=== PATIENT | female | born 1955 | race Caucasian/White ===

== ENCOUNTER 2022-02-25 13:16 | Outpatient (CLI) | payer MEDICARE, MEDICAID, SELFPAY ==
--- NOTE | 2022-02-25 13:30 | CT_ITS ---
WS: [id number] CT ABDOMEN AND PELVIS NONCONTRAST HISTORY: 30 LB WEIGHT LOSS/H/X COLON POLYPS/EPIGASTRIC PAIN TECHNIQUE: Imaging performed through the abdomen and pelvis. Oral contrast provided. Coronal and sagi ttal reformats are submitted. All CT scans at [facility] use at least one of these dose optim ization techniques: automated exposure control; mA and/or kV adjustment per patient size (includes ta rgeted exams where dose is matched to clinical indication); or iterative reconstruction. DLP: 565.77 mGy.cm COMPARISON: None available. Lower thorax: Hyperexpanded lung bases with severe centrilobular emphysema. Mildly ectatic lower thor acic aorta. Liver: Mildly enlarged liver extends over the ilium. Liver is of increased density throughout but no mass identified. Gallbladder: Prior cholecystectomy. Pancreas: Unremarkable on this unenhanced exam. Spleen: Normal. Adrenal glands: Normal. No mass. Right kidney: Normal size kidney with no mass or hydronephrosis. Left kidney: Normal size kidney with no mass or hydronephrosis. Aorta: Ectatic abdominal aorta with no aneurysm. Calcifications noted within the proximal SMA and inge iac axis. No free fluid. Lymph nodes would be difficult to exclude as there is very little fat the l oops of GI tract and organs. GI tract: Mild wall thickening of the stomach. No small bowel obstruction. Diffuse fecal retention. P rior appendectomy. Numerous diverticula in the distal colon with wall thickening. Abdominal wall: Negative. No hernia. Pelvis: Prior hysterectomy. Normally distended bladder. Osseous structures: Osteopenia. CT/CT abdomen pelvis wo con [id number] IMPRESSION: 1. Imaging quality is suboptimal without IV contrast. There is very little fat the structures within the abdomen and pelvis. 2. Severe emphysema. 3. Prior appendectomy, cholecystectomy and hysterectomy. 4. Mild wall thickening of the stomach may be due to underdistention. 5. Dense liver can be seen with amiodarone therapy, iron and copper deposition . 6. Atherosclerosis aorta and mesenteric arteries. 7. Sigmoid diverticulosis with no acute diverticulitis.
[2022-02-25] MEDS: barium sulfate 450 mL Oral Susp PO (14:52)
== END 2022-02-25 13:17 | disposition home or self-care (01) ==
LOC: RAD 13:16
PROVIDERS: PCP Nurse Practitioner Family; Visit Provider Surgery
DX: R63.4 Abnormal weight loss (principal); R19.5 Other fecal abnormalities; R10.13 Epigastric pain; Z86.010 Personal history of colon polyps; K57.30 Diverticulosis of large intestine without perforation or abscess without bleeding; I70.0 Atherosclerosis of aorta; Q42.8 Congenital absence, atresia and stenosis of other parts of large intestine; Z90.49 Acquired absence of other specified parts of digestive tract; Z90.710 Acquired absence of both cervix and uterus; J43.9 Emphysema, unspecified
CPT/HCPCS: 74176

== ENCOUNTER 2023-01-24 09:39 | Inpatient (IN) | payer MEDICARE, MEDICAID, SELFPAY ==
[2023-01-24] VITALS (14 sets, daily range): BP systolic 87–135; BP diastolic 53–87; PULSE 73–90; RESP 15–26; TEMP 36.4–37.4; O2SAT 92–99
--- NOTE | 2023-01-24 10:00 | XRR_ITS ---
PROCEDURE INFORMATION: Exam: XR Chest Exam date and time: 01/24/2023 10:20 AM Age: 67 years old Clinical indication: Shortness of breath; Additional info: SOB TECHNIQUE: Imaging protocol: Radiologic exam of the chest. Views: 1 view. COMPARISON: CT abdomen pelvis wo con [id number] 02/25/2022 2:44 PM FINDINGS: Lungs: The lungs are hyperinflated with flattening of the hemidiaphragms compatible with COPD. Pleural spaces: There is notable apical pleural scarring. Heart/Mediastinum: Unremarkable. No cardiomegaly. Bones/joints: The bones are osteopenic. There is a mild dextroconvex scoliosis of the lower thoracic spine. XR/XR chest 1V portable [id number] IMPRESSION: COPD.
[2023-01-24] MEDS: sodium chloride 0.9% 500 ML 999 ML IV (10:21)
[2023-01-24] MEDS: methylPREDNISolone sod succ 125 mg SDV IV (10:21)
--- NOTE | 2023-01-24 10:23 | ECG_ITS ---
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 Measurements Intervals [place] Rate: 84 P: -1 MO: 108 QRS: 90 QRSD: 82 T: 77 QT: 339 QTc: 401 Interpretive Statements SINUS RHYTHM WITH SHORT MO INTERVAL No previous ECG available for comparison Electronically Signed On 01-25-2023 11:25:50 CDT by Zeke Marcus M.D. [id number]
[2023-01-24 10:24] LABS: Basophils % 0.2 %; Hematocrit 39.2 % (37.0-47.0); Hemoglobin 12.1 g/dL (11.5-15.3); Lymphocytes # 0.9 10^3/uL (0.8-4.8); Lymphocytes % 8.1 %; Mean Corpuscular HGB Conc 30.9 g/dL (30.0-36.0); Mean Corpuscular Volume 100.5 fl (81-99); Mean Platelet Volume 9.6 fL (7.4-10.4); Monocytes # 0.8 10^3/uL (0.2-0.9); Monocytes % 7.2 %; Neutrophils # 8.99 10^3/uL (1.8-7.7); Neutrophils % 84.1 %; Nucleated Red Blood Cells % 0 %; Platelet Count 233 10^3/cmm (130-400); Red Cell Distribution Width 13.2 % (12.1-15.1); White Blood Count 10.7 10^3/uL (4.0-10.0)
[2023-01-24] MEDS: aspirin 81 mg Chew Tablet 324 MG PO (10:42)
[2023-01-24 10:44] LABS: Troponin(5th) Baseline 32 ng/L (0-10)
[2023-01-24] MEDS: ipratropium-albuterol 3 mL Neb INHALATION ×4 (10:45→20:08)
[2023-01-24 10:53] LABS: Alanine Aminotransferase 11 U/L (0-33); Albumin Level 3.9 g/dL (3.5-5.2); Alkaline Phosphatase 57 U/L (35-105); Anion Gap 8.3 (5-19); Aspartate Amino Transferase 12 U/L (0-32); Blood Urea Nitrogen 7 mg/dL (8-23); Calcium 9.4 mg/dL (8.5-10.5); Chloride 83 mmol/L (98-107); Globulin 2.9 g/dL (1.3-4.6); Glomerular Filtration Rate 158.3 mL/min (90-130); Glucose 101 mg/dL (65-115); NT Pro B Type Natriuretic Pept 382 pg/mL (0-125); Osmolality Calculated 276 mOsm/kg (285-295); Potassium 4.3 mmol/L (3.5-5.1); Sodium 134 mmol/L (136-145); Total Bilirubin 0.5 mg/dL (0.15-1.2); Total Protein 6.8 g/dL (6.6-8.7)
[2023-01-24 10:55] LABS: Influenza A by IFA negative (Negative); Influenza B by IFA negative (Negative)
[2023-01-24 10:56] LABS: SARS Covid-2 Antigen negative (Negative)
[2023-01-24 11:01] LABS: Carbon Dioxide 47 mmol/L (22-29)
--- NOTE | 2023-01-24 11:18 | ED_ITS ---
HPI - SOB/Dyspnea General: Chief Complaint: Shortness of Breath/Dyspnea Stated Complaint: SOB Time Seen by Provider: 01/24/23 09:45 History of Present Illness: HPI Narrative: Kristine is a 67-year-old female with a history of COPD and cardiovascular disease that was seen in the emergency department today for increased work of breathing, shortness of breath, chest tightness. Patient denies any radiation of pain Reports her symptoms have been progressive for the last 4 days. She denies fever or chills. She reports productive cough with green sputum Patient does not see cardiology or pulmonology. Her medications are unchanged since 2020 She is currently taking statins, beta-blockers. She is reportedly on Lasix as well. She states she receives all of her care here through the hospital system. Associated symptoms: Reports chest congestion, chest pain and orthopnea; Deny abdominal pain, dizziness, extremity pain, fever(s), nausea, palpitations, polydipsia, polyuria or vomiting Review of Systems General: Reports: 10 or more systems reviewed and unremarkable except in HPI and below Const: Denies: fever(s), chills, change in appetite, change in weight, fatigue or malaise Eyes: Denies: change in vision, eye discomfort, eye discharge or eye redness ENMT: Denies: throat pain, enlarged tonsils, odynophagia, hoarseness, ear or mastoid pain, ear discharge, change in hearing, tinnitus, nasal discharge, nasal congestion, post nasal drip or sinus pain Card: Reports: chest pain, edema, dyspnea on exertion and orthopnea; Denies: palpitations, irregular heart rhythm or leg pain with exertion Resp: Reports: dyspnea, productive cough, change in phlegm color and chest congestion; Denies: non-productive cough, wheezing or stridor GI: Denies: abdominal pain, nausea, vomiting, dysphagia, diarrhea, constipation, bloating, GI cramping or hematochezia : Denies: flank pain, difficulty voiding, dysuria, urinary frequency, uri nary urgency, urinary hesitancy, oliguria or hematuria Musc: Denies: neck pain, back pain, extremity pain, joint pain, joint swelling, joint redness, joint warmth or muscle weakness Skin/Breast: Denies: rash, pruritus, erythema, photosensitivity or new lesions Neuro: Denies: headache(s), numbness in extremities, weakness in extremities, sensory changes, lack of coordination, difficulty walking, frequent falls, dizziness, confusion, Slurred speech present, difficulty communicating thoughts, seizure-like activity or involuntary movements Endo: Denies: polyuria, polydipsia or tired all the time Ward/Lymph: Denies: easy bruising or easy bleeding PFSH ED PFSH: Medical History Anxiety CAD (coronary artery disease) Chronic back pain Chronic obstructive pulmonary disease Dyslipidemia Hypertension Hypothyroid Surgical History H/O: hysterectomy Hx of cholecystectomy S/P appendectomy Family History (Updated 01/24/23 @ 13:41 by Justin Perkins MD) Mother Lung cancer Social History Smoking and tobacco status: current every day smoker cigarettes Packs smoked per day: 1 Years cigarettes smoked: 30 [ Other cigarette details: started at age 28] Physical Exam Const: COMMON NORMALS: patient oriented x3 and alert; apparent distress GENERAL APPEARANCE: cooperative ORIEN TATION/CONSCIOUSNESS: Yes awake, Yes oriented to person, Yes oriented to place and Yes oriented to time HENMT: COMMON NORMALS: normocephalic and atraumatic HEAD & SCALP: normocephalic and atraumatic FACE & SINUS: normal facial exam MOUTH: Normal oral and palatal mucosa present THROAT: posterior oropharynx normal Eye: COMMON NORMALS: Equal, round and reactive pupils present, EOMs intact bilaterally, conjunctivae normal and no scleral icterus GENERAL EYE: appearance normal, both eyes and all related structures ALIGNMENT: Yes alignment normal PERIORBITAL: periorbital findings normal CONJUNCTIVA: Yes conjunctivae normal PUPIL: Yes Equal, round and reactive pupils present Neck/C-Spine: COMMON NORMALS: full ROM GENERAL: Yes normal visual inspection Lymph: LYMPHATIC: no lymphadenopathy noted Chest: CHEST: Yes abnormal inspection of the chest barrel chest and Yes Symmetrical chest wall rise Breast/axilla inspection: Yes no chest deformity, asymmetry, normal contours, no nodules, masses, tenderness Resp: EFFORT & INSPECTION: No able to speak in complete sentences, Yes symmetric chest movement, No abnormal respiratory pattern, Yes tachypneic, Yes respiratory distress, Yes labored, Yes retractions supraclavicular, Yes uses accessory muscles and Yes prolonged expiratory phase AUSCULTATION: crackles and diminished lung sounds diffuse Cardio: COMMON NORMALS: regular rate, regular rhythm and Peripheral pulses 2+ throughout RATE: regular rate RHYTHM: regular rhythm PERIPHERAL PULSES: Peripheral pulses 2+ throughout GI: COMMON NORMALS: Normal to inspection, nondistended, normoactive bowel sounds present, Soft to palpation, non-tender and No hepatosplenomegaly present INSPECTION: Yes normal to inspection AUSCULTATION: Yes normoactive bowel sounds PALPATION: Yes Soft to palpation and Yes No hepatosplenomegaly present RECTAL EXAM: deferred Extremity: COMMON NORMALS: normal to inspection GENERAL: Yes normal exam except as noted Neuro: COMMON NORMALS: patient oriented x3 SENSORIUM/ORIENTATION: Yes alert, Yes oriented to person, Yes oriented to place and Yes oriented to time CRANIAL NERVES: Yes CN normal except as noted Psych: COMMON NORMALS: mental status grossly normal, Normal thought process present, cooperative, activity/motor behavior normal, denies homicidal ideation and denies suicidal ideation THOUGHT PROCESS: Normal thought process present Skin: COMMON NORMALS: no rashes or lesions noted, no wounds and turgor normal GENERAL SKIN EXAM: no rashes or lesions noted and turgor normal Course Vital Signs: Vital signs: Vital Signs Temperature 97.8 F 01/24/23 09:40 Pulse Rate 79 01/24/23 11:48 Respiratory Rate 20 H 01/24/23 11:44 Blood Pressure 135/87 01/24/23 11:20 Pulse Oximetry 93 01/24/23 11:44 Oxygen Delivery Me thod Nasal Cannula 01/24/23 11:44 Oxygen Flow Rate 3 01/24/23 11:44 MDM - SOB/Dyspnea Medical Decision Making Differential diagnoses include COPD exacerbation, pneumonia, COVID, influenza, cardiac?AMI, unstable angina, Patient was evaluated in the emergency department. She has reports of longstanding COPD and cardiovascular disease but does not follow-up with cardiology or pulmonology. Patient does have a primary care doctor who has been encouraging her to come to the emergency department for the last week due to excessive weight loss and increased work of breathing. Patient has declined. Patient still uses nicotine/tobacco products She reports increase in change in her sputum. She now states it is purulent in nature. She has some chest tightness versus chest pain for the last 2 to 4 days. She states she came to the emergency department today because of worsening fatigue Patient states she was unable to walk to the kitchen. In the emergency department she is tachypneic but has a oxygen saturation of greater than 92% on 3 L. Uses 3 L O2 at home and has not required increase in her oxygen. I did speak with Dr. Flower, my attending, early on. He did obtain a EKG on arrival. At 1023 her EKG revealed a sinus rhythm with a ventricular rate at a 84 beats a minute. QTc is 380 EKG shows some elevation ST segment in leads II, III and aVF. There is no previous EKG documented to compare to. She was given steroids here in the emergency department, ceftriaxone, and DuoNeb. After the initial DuoNeb patient reported some improvement in respiratory status. Her breath sounds are less diminished. Her CXR reveals COPD without obvious pneumonia. Laboratory studies complete revealed only mild increase in her white blood cells?10,700. There is no anemia CMP shows a CO2 of 47. Her troponin was 32. The EKG shows some improvement in the inferior T elevation. I spoke with Dr. Clay at 1230. He is requested ABG and will come down to see the patient. It is likely the patient has heart strain secondary to COPD exacerbation. Lab Data 01/24/23 09:58 01/24/23 09:58 Labs/Radiology: Radiology Impressions Chest X-Ray 01/24/23 10:00 IMPRESSION: COPD. Laboratory Results WBC 10.7 10^3/uL (4.0-10.0) H 01/24/23 09:58 RBC 3.90 10^6/uL (4.1-5.3) L 01/24/23 09:58 Hgb 12.1 g/dL (11.5-15.3) 01/24/23 09:58 Hct 39.2 % (37.0-47.0) 01/24/23 09:58 MCV 100.5 fl (81-99) H 01/24/23 09:58 MCH 31.0 pg (28.0-34.0) 01/24/23 09:58 MCHC 30.9 g/dL (30.0-36.0) 01/24/23 09:58 RDW 13.2 % (12.1-15.1) 01/24/23 09:58 Plt Count 233 10^3/cmm (130-400) 01/24/23 09:58 MPV 9.6 fL (7.4-10.4) 01/24/23 09:58 Neut % (Auto) 84.1 % 01/24/23 09:58 Lymph % (Auto) 8.1 % 01/24/23 09:58 [place] % (Auto) 7.2 % 01/24/23 09:58 Eos % (Auto) 0.0 % 01/24/23 09:58 Baso % (Auto) 0.2 % 01/24/23 09:58 Neut # (Auto) 8.99 10^3/uL (1.8-7.7) H 01/24/23 09:58 Lymph # (Auto) 0.9 10^3/uL (0.8-4.8) 01/24/23 09:58 [place] # (Auto) 0.8 10^3/uL (0.2-0.9) 01/24/23 09:58 Eos # (Auto) 0.0 10^3/uL (0.0-0.8) 01/24/23 09:58 Baso # (Auto) 0.0 10^3/uL (0.0-0.1) 01/24/23 09:58 Nucleated RBC % (auto) 0 % 01/24/23 09:58 Nucleated RBCs # 0.0 /100WBC 01/24/23 09:58 Specimen Type Arterial 01/24/23 13:00 Sample Site Brachial, left 01/24/23 13:00 ABG pH 7.44 (7.35-7.45) 01/24/23 13:00 ABG pCO2 68.3 mmHg (35-45) H* 01/24/23 13:00 ABG pO2 73.0 mmHg (80.0-100.0) L 01/24/23 13:00 ABG HCO3 46.7 mmol/L (22-26) H 01/24/23 13:00 ABG O2 Saturation 97.2 01/24/23 13:00 ABG Base Excess 19.3 mmol/L (-2.0-2.0) H 01/24/23 13:00 [place] Test N/a 01/24/23 13:00 A-a O2 Gradient 9.4 mmHg (5-10) 01/24/23 13:00 Hematocrit 35.4 % (37-47) L 01/24/23 13:00 Hgb O2 Saturation 93.3 % (95-100) L 01/24/23 13:00 Carboxyhemoglobin 3.6 %THgb (0.4-20.1) 01/24/23 13:00 Methemoglobin 0.5 % (0.4-1.5) 01/24/23 13:00 Total Hemoglobin 11.5 g/dL (12-16) L 01/24/23 13:00 Sodium 133.0 mmol/L (131-143) 01/24/23 13:00 Potassium 4.0 mmol/L (3.5-5.0) 01/24/23 13:00 Glucose 118.0 mg/dL (70-115) H 01/24/23 13:00 Ionized Calcium 1.2 mmol/L (1.1-1.4) 01/24/23 13:00 O2 Delivery Device Nc 01/24/23 13:00 O2 Liters/Min 3.0 % 01/24/23 13:00 FiO2 32.0 % 01/24/23 13:00 Process Improvement Manager ID glc 01/24/23 13:00 Sodium 134 mmol/L (136-145) L 01/24/23 09:58 Potassium 4.3 mmol/L (3.5-5.1) 01/24/23 09:58 Chloride 83 mmol/L (98-107) L 01/24/23 09:58 Carbon Dioxide 47 mmol/L (22-29) H* 01/24/23 09:58 Anion Gap 8.3 (5-19) 01/24/23 09:58 BUN 7 mg/dL (8-23) L 01/24/23 09:58 Creatinine 0.4 mg/dL (0.5-0.9) L 01/24/23 09:58 GFR Calculation 158.3 mL/min (90-130) H 01/24/23 09:58 Glucose 101 mg/dL (65-115) 01/24/23 09:58 Calculated Osmolality 276 mOsm/kg (285-295) L 01/24/23 09:58 Calcium 9.4 mg/dL (8.5-10.5) 01/24/23 09:58 Total Bilirubin 0.5 mg/dL (0.15-1.2) 01/24/23 09:58 AST 12 U/L (0-32) 01/24/23 09:58 ALT 11 U/L (0-33) 01/24/23 09:58 Alkaline Phosphatase 57 U/L (35-105) 01/24/23 09:58 Troponin T Baseline 32 ng/L (0-10) H 01/24/23 09:58 Troponin T 120 Minute 27.78 ng/L (0-10) H 01/24/23 12:06 Delta Troponin T -4.22 ABS# (0-10) L 01/24/23 12:06 NT-Pro-B Natriuret Pep 382 pg/mL (0-125) H 01/24/23 09:58 Total Protein 6.8 g/dL (6.6-8.7) 01/24/23 09:58 Albumin 3.9 g/dL (3.5-5.2) 01/24/23 09:58 Globulin 2.9 g/dL (1.3-4.6) 01/24/23 09:58 Influenza Type A Ag negative (Negative) 01/24/23 10:30 Influenza Type B Ag negative (Negative) 01/24/23 10:30 SARS-CoV-2 Ag (Rapid) negative (Negative) 01/24/23 10:30 Discharge Plan Discharge Patient Disposition: Admitted As Inpatient Clinical Impression: Acute exacerbation of chronic obstructive pulmonary disease, Elevated troponin, Hypercarbia, Acute respiratory distress Condition: Stable Prescriptions: No Action Spiriva Respimat 2.5 mcg/actuation mist 2 inh inhalation QAM Combivent Respimat 20-100 mcg/actuation mist 1 puff inhalation Q6H budesonide-formoterol [Symbicort] 160-4.5 mcg/actuation HFA aerosol inhaler 2 puff inhalation BID Dexilant 60 mg capsule,biphase delayed releas 60 mg PO DAILY diclofenac sodium 1 % gel 2 g topical QID Rx Instructions: apply to single elbow, wrist or hand; for hand includes palm/fingers/back of hand fluticasone propionate [Allergy Relief (fluticasone)] 50 mcg/actuation spray,suspension 1 spray intranasal BID Rx Instructions: administer into each nostril metoprolol succinate [Toprol XL] 25 mg tablet extended release 24 hr 25 mg PO QPM levothyroxine 100 mcg capsule 100 mcg PO DAILY lorazepam 0.5 mg tablet 0.5 mg PO BID rosuvastatin 10 mg tablet 10 mg PO QPM montelukast 10 mg tablet 1 ea PO DAILY albuterol sulfate 90 mcg/actuation HFA aerosol inhaler 2 puff inhalation Q4H PRN (Reason: Shortness Of Breath Or Wheezing) losartan 50 mg tablet 50 mg PO DAILY potassium chloride 8 mEq capsule, extended release 8 meq PO DAILY furosemide 20 mg tablet 20 mg PO DAILY megestrol 20 mg tablet 20 mg PO QID dicyclomine 10 mg capsule 10 mg PO TID Referrals: Renetta Garcia NP [Primary Care Provider] - Coding Level of Care Code ED Utility Appraiser for Bette Gotti
--- NOTE | 2023-01-24 11:24 | ECG_ITS ---
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 Measurements Intervals [place] Rate: 82 P: -33 [place]: 119 QRS: 88 QRSD: 81 T: 73 QT: 338 QTc: 395 Interpretive Statements SINUS RHYTHM WITH SHORT [place] INTERVAL Compared to ECG 01/24/2023 10:23:59 No significant changes Electronically Signed On 01-25-2023 11:34:44 CDT by Zeke Marcus M.D. [id number]
[2023-01-24] MEDS: cefTRIAXone 1,000 MG in sodium chloride 0.9% (plus) 50 ML 100 MG IV (11:25)
[2023-01-24 12:56] LABS: Troponin 5 2HR 27.78 ng/L (0-10)
[2023-01-24 13:09] LABS: ABG PH Result 7.44 (7.35-7.45); Alveolar-Arterial Oxygen Gradi 9.4 mmHg (5-10); Arterial Blood Gas Hematocrit 35.4 % (37-47); Base Excess ABG 19.3 mmol/L (-2.0-2.0); Blood Gas Operator Identificat glc; Blood Gas Sample Site Brachial, left; Blood Gas Sample Type Arterial; Carboxyhemoglobin 3.6 %THgb (0.4-20.1); HCO3 ABG 46.7 mmol/L (22-26); HGB O2 Sat 93.3 % (95-100); Ionized Calcium Level - ABG 1.2 mmol/L (1.1-1.4); Methemoglobin 0.5 % (0.4-1.5); Oxygen Device NC; Oxygen Saturation ABG 97.2; Total Hemoglobin 11.5 g/dL (12-16)
[2023-01-24 13:11] LABS: ABG PCO2 68.3 mmHg (35-45)
--- NOTE | 2023-01-24 13:36 | PM.HP ---
Providers/Chief Complaint Primary Care Provider: Renetta Garcia NP Chief Complaint: SOB History of Present Illness Kristine Bell is a 67 year old female with a past medical history of COPD, current smoker, who presents to [facility] due to increasingly short of breath, productive cough, yellow-green sputum, patient tells me that recently she has been feeling more short of breath, short of breath with exertion, no fevers, chills but is having a productive cough with yellow-green sputum she also reports left chest discomfort with her shortness of breath, denies a history of CAD no history of heart attacks, no history of strokes, no history of diabetes, denied lower extremity edema she has been losing weight, due to poor appetite, for which she is on meds [place], denies any bloody or black stools does have a family history of lung cancer in her mother, does report smoking for more than 30 years, Review of Systems Const: Denies: fever(s) or chills Eyes: Denies: change in vision Card: Denies: chest pain or palpitations Resp: Reports: dyspnea and productive cough GI: Denies: abdominal pain or nausea : Denies: flank pain or difficulty voiding Musc: Denies: neck pain or back pain Skin/Breast: Denies: rash Neuro: Denies: headache(s) or numbness in extremities Psych: Denies: anxiety or depression Endo: Denies: polyuria Medications/Allergies Home Medications Medication Instructions Recorded Confirmed Last Taken Type albuterol sulfate 90 mcg/actuation 2 puff inhalation Q4H PRN 04/11/21 01/24/23 Unknown History aerosol inhaler Shortness Of Breath Or Wheezing budesonide-formoterol HFA 160 2 puff inhalation BID 04/11/21 01/24/23 01/23/23 History mcg-4.5 mcg/actuation aerosol inhaler (Symbicort) dexlansoprazole 60 mg 60 mg PO DAILY 04/11/21 01/24/23 01/23/23 History capsule,biphase delayed release (Dexilant) diclofenac sodium 1 % topical gel 2 g topical QID 04/11/21 01/24/23 01/23/23 History fluticasone propionate 50 1 spray intranasal BID 04/11/21 01/24/23 01/23/23 History mcg/actuation nasal spray,suspension (Allergy Relief (fluticasone)) ipratropium 20 mcg-albuterol 100 1 puff inhalation Q6H 04/11/21 01/24/23 01/23/23 History mcg/actuation mist for inhalation (Combivent Respimat) levothyroxine 100 mcg capsule 100 mcg PO DAILY 04/11/21 01/24/23 01/23/23 History lorazepam 0.5 mg tablet 0.5 mg PO BID 04/11/21 01/24/23 01/23/23 History metoprolol succinate 25 mg 25 mg PO QPM 04/11/21 01/24/23 01/23/23 History tablet,extended release 24 hr (Toprol XL) montelukast 10 mg tablet 1 ea PO DAILY 04/11/21 01/24/23 01/23/23 History rosuvastatin 10 mg tablet 10 mg PO QPM 04/11/21 01/24/23 01/23/23 History tiotropium bromide 2.5 2 inh inhalation QAM 04/11/21 01/24/23 01/23/23 History mcg/actuation mist for inhalation (Spiriva Respimat) dicyclomine 10 mg capsule 10 mg PO TID 01/24/23 01/24/23 01/23/23 History furosemide 20 mg tablet 20 mg PO DAILY 01/24/23 01/24/23 01/23/23 History losartan 50 mg tablet 50 mg PO DAILY 01/24/23 01/24/23 01/23/23 History megestrol 20 mg tablet 20 mg PO QID 01/24/23 01/24/23 01/23/23 History potassium chloride 8 mEq 8 meq PO DAILY 01/24/23 01/24/23 01/23/23 History capsule,extended release Allergies Allergy/AdvReac Type Severity Reaction Status Date / Time acetaminophen [From Lortab] Allergy Unknown unknown Verified 01/24/23 09:47 codeine Allergy Unknown Unknown Verified 01/24/23 09:47 diphenhydramine Allergy Unknown Unknown Verified 01/24/23 09:47 [From Benadryl] hydrocodone [From Lortab] Allergy Unknown unknown Verified 01/24/23 09:47 ketorolac Allergy Unknown unknown Verified 01/24/23 09:47 latex Allergy Unknown unknown Verified 01/24/23 09:47 meperidine Allergy Unknown unknown Verified 01/24/23 09:47 ondansetron [From Zofran] Allergy Unknown unknown Verified 01/24/23 09:47 Sulfa (Sulfonamide Allergy Unknown unknown Verified 01/24/23 09:47 Antibiotics) iodine Allergy unknown Verified 01/24/23 09:47 Penicillins Allergy unknown Verified 01/24/23 09:47 PFSH Acute PFSH: Medical History Anxiety CAD (coronary artery disease) Chronic back pain Chronic obstructive pulmonary disease Dyslipidemia Hypertension Hypothyroid Surgical History H/O: hysterectomy Hx of cholecystectomy S/P appendectomy Family History (Updated 01/24/23 @ 13:39 by Justin Perkins MD) Mother Lung cancer Social History Smoking and tobacco status: current every day smoker cigarettes Packs smoked per day: 1 Years cigarettes smoked: 30 [ Other cigarette details: started at age 28] Vitals/I&O/Wt Last Vital Signs Temp 97.8 F 01/24/23 09:40 Pulse 79 01/24/23 11:48 Resp 20 H 01/24/23 11:44 BP 135/87 01/24/23 11:20 Pulse Ox 93 01/24/23 11:44 O2 Del Method Nasal Cannula 01/24/23 11:44 O2 Flow Rate 3 01/24/23 11:44 Weight last 48 hrs Weight 34.927 kg Physical Exam Narrative: Severe muscle wasting Temporal muscle wasting Bile upper extremities shoulders in all muscle wasting Bilateral legs thighs calves muscle wasting Const: COMMON NORMALS: no acute distress and patient oriented x3 GENERAL APPEARANCE: cooperative and well kempt HENMT: COMMON NORMALS: normocephalic and Normal external nose present HEAD & SCALP: normocephalic FACE & SINUS: normal facial exam NOSE: Normal external nose present MOUTH: Normal oral and palatal mucosa present Eye: COMMON NORMALS: Equal, round and reactive pupils present, EOMs intact bilaterally, conjunctivae normal and no scleral icterus CONJUNCTIVA: Yes conjunctivae normal PUPIL: Yes Equal, round and reactive pupils present Neck/C-Spine: COMMON NORMALS: full ROM, no lymphadenopathy, no JVD and No carotid bruits THYROID: Thyroid normal Lymph: LYMPHATIC: no lymphadenopathy noted Chest: COMMONS NORMALS: normal inspection of the chest Resp: COMMON NORMALS: normal respiratory effort, No retractions and No use of accessory muscles OTHER: Diminished lung sounds bilaterally, with scattered wheezing, Cardio: COMMON NORMALS: regular rate, regular rhythm, S1 normal heart sound present, S2 normal heart sound present, No murmurs present (Cardio) and Peripheral pulses 2+ throughout RATE: regular rate RHYTHM: regular rhythm HEART SOUNDS: S1 normal heart sound present and S2 normal heart sound present PERIPHERAL PULSES: Peripheral pulses 2+ throughout GI: COMMON NORMALS: Normal to inspection, nondistended, normoactive bowel sounds present, Soft to palpation and non-tender PALPATION: Yes Soft to palpation : BLADDER/KIDNEY EXAM: Yes no CVA tenderness Back/Pelvis: COMMON NORMALS: no CVA tenderness Extremity: COMMON NORMALS: normal to inspection, full ROM, capillary refill normal, no calf tenderness and no pedal edema Neuro: COMMON NORMALS: patient oriented x3, CN's II-XII intact bilaterally, moves all extremities, no focal motor deficits and no sensory deficits noted MENINGEAL SIGNS: Yes no meningeal signs Psych: COMMON NORMALS: mental status grossly normal, Normal thought process present, cooperative and speech normal APPEARANCE: Yes well kempt SPEECH: Yes normal speech THOUGHT PROCESS: Normal thought process present Skin: COMMON NORMALS: turgor normal and no jaundice GENERAL SKIN EXAM: turgor normal Data 01/24/23 09:58 01/24/23 09:58 A&P Assessment and plan (1) Acute exacerbation of chronic obstructive pulmonary disease: (2) Acute respiratory failure with hypoxia and hypercapnia: (3) Asthma-COPD overlap syndrome: (4) Dyslipidemia: (5) Smoker: (6) Hypertension: (7) Hypothyroid: Qualifiers: Hypothyroidism type: acquired Qualified Code(s): E03.9 - Hypothyroidism, unspecified (8) Muscle wasting: (9) Severe protein-calorie malnutrition: (10) Physical deconditioning: (11) NSTEMI (non-ST elevated myocardial infarction): (12) Chest pain: (13) Anorexia nervosa with dangerously low body weight: Plan Acute hypoxic hypercarbic respiratory failure -Secondary to COPD -Currently no evidence of nasal retractions, intercostal retractions, or respiratory distress, on 3 L Plan -Admit to general medical floors -Monitor respiratory status closely -We will place on BiPAP, as needed during the day schedule during the night -Solu-Medrol 40 mg IV every 8 hours. ? Continue Rocephin, continue azithromycin. ? Continue DuoNeb. ? Continue budesonide. ? Follow blood cultures, sputum cultures, p.o. ? Venous ultrasound, D-dimer, CT of the chest. ? Has a contrast allergy cannot perform CT angiogram. Chest pain/NSTEMI -Likely type II NSTEMI, from supply demand ischemia from respiratory failure as above however cannot rule out underlying cardiac etiology given history of smoking and age -Serial EKGs, serial troponins, telemetry monitoring -Continue aspirin, statin, beta-manny -Cardiac echo Severe protein calorie malnutrition, severe muscle wasting, severe physical deconditioning -Consult dietary -Consult speech pathology -PT OT anorexia, with dangeorusly, low body weight COPD, current smoker, smoking cessation counseling Goals of care discussion, patient would like to be a full code Attestations Medical Necessity Statement*: Patient requires hospitalization for acute hypoxic hypercarbic respiratory failure secondary COPD exacerbation, severe protein calorie malnutrition, physical deconditioning, inpatient, greater than 2 midnights Diagnoses Acute exacerbation of chronic obstructive pulmonary disease J44.1 Acute respiratory failure with hypoxia and hypercapnia J96.01; J96.02 Asthma-COPD overlap syndrome J44.9 Dyslipidemia E78.5 Smoker F17.200 Hypertension I10 Hypothyroid E03.9 Hypothyroidism type: acquired Muscle wasting M62.50 Severe protein-calorie malnutrition E43 Physical deconditioning R53.81 NSTEMI (non-ST elevated myocardial infarction) I21.4 Chest pain R07.9 Anorexia nervosa with dangerously low body weight F50.00
--- NOTE | 2023-01-24 13:40 | CTR_ITS ---
PROCEDURE INFORMATION: Exam: CT Chest Without Contrast; Diagnostic Exam date and time: 01/24/2023 3:11 PM Age: 67 years old Clinical indication: Shortness of breath; Additional info: SOB TECHNIQUE: Imaging protocol: Diagnostic computed tomography of the chest without contrast. Radiation optimization: All CT scans at this facility use at least one of these dose optimization techniques: automated exposure control; mA and/or kV adjustment per patient size (includes targeted exams where dose is matched to clinical indication); or iterative reconstruction. REPORTING DATA: Count of CT and Cardiac NM exams in prior 12 months: This patient has received [address] and 0 known cardiac nuclear medicine studies in the 12 months prior to the current study. COMPARISON: CR (CHEST, ) 01/24/2023 10:20 AM RADIATION DOSE METRICS: Total DLP (mGy-cm): 239.48 FINDINGS: Lungs: Severe emphysematous changes of the lungs. Reticulation and mild traction bronchiectasis noted along the periphery of the right lung base. Minor curvilinear scarring in the left lower lobe. No consolidation. No masses. Pleural spaces: No pneumothorax. No pleural effusion. Heart: Coronary artery calcifications. No cardiomegaly. No pericardial effusion. Lymph nodes: No enlarged lymph nodes. Vasculature: Ectasia of the ascending thoracic aorta up to 4.3 cm. Bones/joints: No acute fracture. Soft tissues: Unremarkable. CT/CT chest con [id number] IMPRESSION: 1. Severe emphysema. No acute findings. 2. Ectasia of the ascending thoracic aorta up to 4.3 cm. COMMENTS: In the absence of a history or active diagnosis of lung cancer, it is recommended that this patient with emphysema be evaluated for enrollment in a low dose CT lung cancer screening program.
[2023-01-24 14:20] LABS: Procalcitonin 0.04 ng/mL (0-0.5)
[2023-01-24] MEDS: acetaminophen 325 mg Tablet 975 MG PO (15:21)
--- NOTE | 2023-01-24 16:00 | ECG_ITS ---
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 Measurements Intervals [place] Rate: 94 P: 88 NM: 122 QRS: 88 QRSD: 88 T: 79 QT: 344 QTc: 431 Interpretive Statements SINUS RHYTHM POSSIBLE RIGHT ATRIAL ENLARGEMENT [0.25mV P-WAVE] POSSIBLE LEFT ATRIAL ENLARGEMENT [-0.1mV P-WAVE IN V1/V2] PATTERN CONSISTENT WITH PULMONARY DISEASE Compared to ECG 01/24/2023 11:24:29 Short NM interval no longer present Electronically Signed On 01-25-2023 11:35:42 CDT by Zeke Marcus M.D. [id number]
--- NOTE | 2023-01-24 16:04 | PC.NURSE ---
pt arrived to med surg room 271
[2023-01-24 17:04] LABS: Troponin 5 6HR 21.49 ng/L (0-10)
[2023-01-24] MEDS: famotidine 20 mg Tablet PO (17:15)
[2023-01-24] MEDS: metoprolol succinate ER (24 HR) 25 mg Tablet PO (17:16)
[2023-01-24] MEDS: azithromycin 500 MG in sodium chloride 0.9% 250 ML 250 MG IV (17:16)
[2023-01-24] MEDS: enoxaparin 40 mg/0.4 mL Syringe SUBCUT (17:16)
[2023-01-24 17:42] LABS: Thyroid Stimulating Hormone 0.77 uIU/mL (0.27-4.20)
[2023-01-24] MEDS: atorvastatin 40 mg Tablet PO ×2 (18:13→20:25)
[2023-01-24 19:41] LABS: Adenovirus Not Detected (NOT DETECT); Chlamydia Pneumoniae Not Detected (NOT DETECT); Coronavirus 229E,HKU1,NL63,OC4 Not Detected (NOT DETECT); Human Metapneumovirus Not Detected (NOT DETECT); Human Rhinovirus/Enterovirus Not Detected (NOT DETECT); Influenza A Not Detected (NOT DETECT); Influenza A H1 Not Detected (NOT DETECT); Influenza A H1-2009 Not Detected (NOT DETECT); Influenza A H3 Not Detected (NOT DETECT); Influenza B Not Detected (NOT DETECT); Mycoplasma Pneumoniae Not Detected (NOT DETECT); Parainfluenza Virus Type 1 Not Detected (NOT DETECT); Parainfluenza Virus Type 2 Not Detected (NOT DETECT); Parainfluenza Virus Type 3 Not Detected (NOT DETECT); Parainfluenza Virus Type 4 Not Detected (NOT DETECT); Respiratory Syncytial Virus A Not Detected (NOT DETECT); Respiratory Syncytial Virus B Not Detected (NOT DETECT); SARS-COV-2 Not Detected (NOT DETECT)
[2023-01-24] MEDS: budesonide 0.5 mg/2 mL Neb INHALATION (20:08)
[2023-01-24] MEDS: methylPREDNISolone sod succ 40 MG in water for injection-sterile 1 ML 12 MG IVP (20:25)
[2023-01-24] MEDS: LORazepam 0.5 mg Tablet PO (20:25)
[2023-01-24 22:07] LABS: Add Urine Microscopic? NO; Charge for UA Resulting for Rev
[2023-01-24 22:20] LABS: Blood Urine Neg (Negative); Glucose Urine UA 1+ (Normal); Ketones Urine 1+ (Negative); Protein Urine Neg (Negative); Specific Gravity, Urine 1.005 (1.005-1.030); Urine Appearance Clear (CLEAR); Urine Color Yellow (Yellow); pH Urine 8 (5-7)
[2023-01-24 22:21] LABS: Bilirubin Urine Neg (Negative); Leukocyte Esterase Urine Negative (Negative); Nitrate Urine Negative (Negative); Sulfosalicylic Acid Urine Negative (Negative); Urobilinogen Urine Norm (Negative)
[2023-01-25] VITALS (14 sets, daily range): BP systolic 106–148; BP diastolic 68–84; PULSE 75–106; RESP 15–22; TEMP 36.6–37; O2SAT 95–99
[2023-01-25] MEDS: methylPREDNISolone sod succ 40 MG in water for injection-sterile 1 ML 12 MG IVP ×3 (04:24→20:39)
[2023-01-25 06:09] LABS: Hematocrit 35.3 % (37.0-47.0); Lymphocytes # 0.4 10^3/uL (0.8-4.8); Lymphocytes % 9.6 %; Mean Corpuscular HGB Conc 31.2 g/dL (30.0-36.0); Mean Corpuscular Volume 99.4 fl (81-99); Mean Platelet Volume 9.7 fL (7.4-10.4); Monocytes # 0.2 10^3/uL (0.2-0.9); Monocytes % 4.8 %; Neutrophils # 3.37 10^3/uL (1.8-7.7); Neutrophils % 85.3 %; Nucleated Red Blood Cells % 0 %; Platelet Count 217 10^3/cmm (130-400); Red Blood Count 3.55 10^6/uL (4.1-5.3); Red Cell Distribution Width 13.2 % (12.1-15.1)
[2023-01-25 06:40] LABS: Alanine Aminotransferase 10 U/L (0-33); Albumin Level 3.3 g/dL (3.5-5.2); Alkaline Phosphatase 46 U/L (35-105); Anion Gap 12.1 (5-19); Aspartate Amino Transferase 18 U/L (0-32); Blood Urea Nitrogen 10 mg/dL (8-23); Calcium 9.1 mg/dL (8.5-10.5); Carbon Dioxide 38 mmol/L (22-29); Chloride 86 mmol/L (98-107); Globulin 2.8 g/dL (1.3-4.6); Glomerular Filtration Rate 220.6 mL/min (90-130); Glucose 114 mg/dL (65-115); Magnesium 1.8 mg/dL (1.7-2.3); Osmolality Calculated 274 mOsm/kg (285-295); Phosphorus 3.3 mg/dL (2.5-4.5); Potassium 4.1 mmol/L (3.5-5.1); Sodium 132 mmol/L (136-145); Total Bilirubin 0.5 mg/dL (0.15-1.2); Total Protein 6.1 g/dL (6.6-8.7)
[2023-01-25] MEDS: levothyroxine 100 mcg Tablet PO (08:17)
[2023-01-25] MEDS: aspirin 81 mg EC Tablet PO (08:18)
[2023-01-25] MEDS: losartan 50 mg Tablet PO (08:18)
[2023-01-25] MEDS: famotidine 20 mg Tablet PO ×2 (08:18→17:53)
[2023-01-25] MEDS: promethazine 25 mg/mL SDV 1 mL 12.5 MG IM ×2 (08:19→17:59)
[2023-01-25] MEDS: montelukast sodium 10 mg Tablet PO (08:19)
[2023-01-25] MEDS: ipratropium-albuterol 3 mL Neb INHALATION ×3 (08:22→20:04)
[2023-01-25] MEDS: budesonide 0.5 mg/2 mL Neb INHALATION ×2 (08:22→20:04)
[2023-01-25] MEDS: LORazepam 0.5 mg Tablet PO (08:57)
[2023-01-25] MEDS: cefTRIAXone 1,000 MG in sodium chloride 0.9% (plus) 50 ML 100 MG IV (13:14)
--- NOTE | 2023-01-25 13:40 | USR_ITS ---
PROCEDURE INFORMATION: Exam: US Duplex Lower Extremity Veins, Bilateral Exam date and time: 01/25/2023 2:26 PM Age: 67 years old Clinical indication: Pain; Leg, lower; Bilateral; Additional info: Dvt TECHNIQUE: Imaging protocol: Real-time duplex ultrasound of the bilateral extremities with 2-D corcoran scale, color Doppler flow and spectral waveform analysis including responses to compression and other maneuvers (when performed) with image documentation. Complete exam focused on the lower extremity veins. COMPARISON: CT abdomen pelvis wo con [id number] 02/25/2022 2:44 PM FINDINGS: Right deep veins: Unremarkable. The common femoral, femoral, proximal profunda femoral and popliteal veins are patent without thrombus. Normal Doppler waveforms. Normal compressibility and/or augmentation response. Left deep veins: Unremarkable. The common femoral, femoral, proximal profunda femoral and popliteal veins are patent without thrombus. Normal Doppler waveforms. Normal compressibility and/or augmentation response. Superficial veins: Bilateral saphenofemoral junctions are patent without thrombus. Soft tissues: Unremarkable. US/CV venous duplex [facility] [id number] IMPRESSION: No evidence of deep vein thrombosis.
--- NOTE | 2023-01-25 13:40 | USCV_ITS ---
Kristine Bell Age: 67 Gender: F : 1955 Exam Date: 01/25/2023 14:00 Ordering Phys: Justin Perkins MD Technologist: Luigi Small [place] [facility] [place]: nstemi BP: 134 / 77 HR: 97 Rhythm: Sinus Technical Quality: Suboptimal MEASUREMENTS (Male / Female) Normal Values 2D ECHO LV Ejection Fraction MOD 2C 74.6 % LV Ejection Fraction 2C AL 74.9 % LA Diameter 3.1 cm LA Width 2.7 cm LA Height 3.1 cm RA Width 2.6 cm RA Height 2.9 cm Aorta at Sinotubular Diameter 2.4 cm IVC Diameter 2.0 cm M-MODE Aortic Annulus Diameter 3.0 cm LA Ao Ratio MM 1.1 MV E Point Septal Separation 0.4 cm DOPPLER AV Peak Velocity 150.0 cm/s LVOT Peak Velocity 113.0 cm/s MV Peak Velocity 126.0 cm/s MV Area PHT 6.9 cm squared Mitral E to A Ratio 0.7 MV E' Velocity 42.0 cm/s Mitral E to MV E' Ratio 9.3 Mitral E to LV E' Lateral Ratio 11.2 Mitral E to LV E' Septal Ratio 8.0 TR Peak Velocity 247.9 cm/s TR Peak Gradient 24.6 mmHg TR Mean Velocity 191.8 cm/s TR Mean Gradient 16.6 mmHg TR Velocity Time Integral 65.6 cm Right Atrial Pressure 3.0 mmHg Pulmonary Artery Systolic Pressu 27.6 mmHg PV Peak Velocity 126.3 cm/s RV Acceleration Time 0.1 s RV Ejection Time 0.2 s RV AcT/ET 0.5 FINDINGS Left Ventricle Normal left ventricular size, systolic function and wall thickness, with no regional wall motion abnormalities. Left ventricular ejection fraction is estimated at 65 %. Grade I/IV diastolic dysfunction (abnormal relaxation filling pattern), normal to mildly elevated filling pressures. Right Ventricle Normal right ventricular size and systolic function. Normal right ventricular systolic pressure. Right Atrium The right atrium is normal in size. Left Atrium The left atrium is normal in size. Mitral Valve Structurally normal mitral valve. Trace mitral valve regurgitation. Aortic Valve Structurally normal aortic valve without significant sclerosis or stenosis. There is no aortic regurgitation. Tricuspid Valve Structurally normal tricuspid valve. Mild tricuspid valve regurgitation. Pulmonic Valve Pulmonic valve not well visualized. Pericardium Normal pericardium without effusion. Aorta Normal ascending aorta dimension. IVC The inferior vena cava appears normal. CONCLUSIONS Normal left ventricular size, systolic function and wall thickness, with no regional wall motion abnormalities. Left ventricular ejection fraction is estimated at 65 %. Grade I/IV diastolic dysfunction (abnormal relaxation filling pattern), normal to mildly elevated filling pressures. Structurally normal mitral valve. Trace mitral valve regurgitation. There are no prior echocardiogram studies to compare. Dr. Zeke Marcus MD (Electronically Signed) Final Date: 25 January 2023 17:57 S
[2023-01-25] MEDS: morphine 4 mg/mL SDV 1 mL 1 MG IVP ×2 (13:50→21:32)
--- NOTE | 2023-01-25 15:20 | PM.PN ---
Subjective Subjective: Patient was seen this morning, family members are at bedside -Patient daughter tells me that patient continues to smoke at home, she continues to lose weight, they have tried all diet options, appetite stimulants -I had extensive discussion with patient and her family about her advanced COPD, she needs to quit smoking, will see if she qualifies for home BiPAP, she tells me that it significantly helped her breathing overnight and she will use it if we try to get it for her, she feels better with the BiPAP -She does not have a family history of lung cancer in her mom -I spoke to patient and her family at bedside in length in detail about her COPD, her smoking, she denies any chest pain Vitals/I&O/Wt Last Vital Signs Temp 98.3 F 01/25/23 08:00 Pulse 95 01/25/23 12:00 Resp 17 01/25/23 13:50 BP 134/77 01/25/23 12:00 Pulse Ox 98 01/25/23 12:00 O2 Del Method Nasal Cannula 01/25/23 11:35 O2 Flow Rate 3 01/25/23 11:35 FiO2 32 01/25/23 06:30 01/25/23 01/25/23 01/25/23 06:59 14:59 22:59 Intake Total 1281 411 / 411 Balance 1281 411 / 411 Weight last 48 hrs Weight 34.927 kg Physical Exam Const: COMMON NORMALS: no acute distress and patient oriented x3 Neck/C-Spine: COMMON NORMALS: no JVD Resp: COMMON NORMALS: normal respiratory effort, No retractions, No use of accessory muscles and clear to auscultation bilaterally AUSCULTATION: clear to auscultation bilaterally Cardio: COMMON NORMALS: no JVD, regular rate, regular rhythm, S1 normal heart sound present and S2 normal heart sound present RATE: regular rate RHYTHM: regular rhythm HEART SOUNDS: S1 normal heart sound present and S2 normal heart sound present GI: COMMON NORMALS: Normal to inspection, nondistended, normoactive bowel sounds present Extremity: COMMON NORMALS: no pedal edema Neuro: COMMON NORMALS: patient oriented x3 Psych: COMMON NORMALS: mental status grossly normal Data 01/25/23 05:42 01/25/23 05:42 Micro: Microbiology 01/24/23 16:28 Blood Culture - Preliminary Blood SPECIMEN COLLECTED 01/24/23 16:22 Blood Culture - Preliminary Blood SPECIMEN COLLECTED A&P Assessment and plan (1) Acute exacerbation of chronic obstructive pulmonary disease: (2) Acute respiratory failure with hypoxia and hypercapnia: (3) Asthma-COPD overlap syndrome: (4) Dyslipidemia: (5) Smoker: (6) Hypertension: (7) Hypothyroid: Qualifiers: Hypothyroidism type: acquired Qualified Code(s): E03.9 - Hypothyroidism, unspecified (8) Muscle wasting: (9) Severe protein-calorie malnutrition: (10) Physical deconditioning: (11) NSTEMI (non-ST elevated myocardial infarction): (12) Chest pain: (13) Anorexia nervosa with dangerously low body weight: Plan Acute hypoxic hypercarbic respiratory failure -Secondary to COPD -ct of the chest shows severe emphysema Plan -Admit to general medical floors -Monitor respiratory status closely -We will place on BiPAP, as needed during the day schedule during the night -Solu-Medrol 40 mg IV every 8 hours. -Patient would clinically benefit from home BiPAP, she has compliant here in the hospital, she tells me clinically helps her breathing, will see if she can qualify ? Continue Rocephin, continue azithromycin. ? Continue DuoNeb. ? Continue budesonide. ? Follow blood cultures, sputum cultures, p.o. ? Venous ultrasound ? Has a contrast allergy cannot perform CT angiogram. Chest pain/NSTEMI -Likely type II NSTEMI, from supply demand ischemia from respiratory failure as above however cannot rule out underlying cardiac etiology given history of smoking and age -Serial EKGs, serial troponins, telemetry monitoring -Continue aspirin, statin, beta-manny -Cardiac echo pending Severe protein calorie malnutrition, severe muscle wasting, severe physical deconditioning -Consult dietary -Consult speech pathology -PT OT anorexia, with dangeorusly, low body weight, consulted dietary COPD, current smoker, smoking cessation counseling Goals of care discussion, patient would like to be a full code Attestations Medical Necessity Statement*: patient requires hospitalization for for acute hypoxic respiratory failure secondary COPD, severe emphysema, inpatient admission, greater than 2 midnights Coding Level of Care Code 91522 High Time for a total of 60 minutes, includes reviewing past or interval history, examining/interviewing patient, placing orders, counseling patient/family/other support, updating patient/family/other support, discussing plan of care with staff, communicating with other healthcare providers, documenting encounter and coordinating care Diagnoses Acute exacerbation of chronic obstructive pulmonary disease J44.1 Acute respiratory failure with hypoxia and hypercapnia J96.01; J96.02 Asthma-COPD overlap syndrome J44.9 Dyslipidemia E78.5 Smoker F17.200 Hypertension I10 Hypothyroid E03.9 Hypothyroidism type: acquired Muscle wasting M62.50 Severe protein-calorie malnutrition E43 Physical deconditioning R53.81 NSTEMI (non-ST elevated myocardial infarction) I21.4 Chest pain R07.9 Anorexia nervosa with dangerously low body weight F50.00
[2023-01-25] MEDS: azithromycin 500 MG in sodium chloride 0.9% 250 ML 250 MG IV (16:00)
[2023-01-25] MEDS: enoxaparin 40 mg/0.4 mL Syringe SUBCUT (16:00)
[2023-01-25] MEDS: atorvastatin 40 mg Tablet PO ×2 (17:53→21:52)
[2023-01-25] MEDS: metoprolol succinate ER (24 HR) 25 mg Tablet PO (17:53)
[2023-01-26] VITALS (13 sets, daily range): BP systolic 115–135; BP diastolic 71–79; PULSE 78–91; RESP 15–21; TEMP 36.8–37.1; O2SAT 94–99
[2023-01-26 05:26] LABS: Basophils % 0.1 %; Hematocrit 33.6 % (37.0-47.0); Hemoglobin 10.5 g/dL (11.5-15.3); Lymphocytes # 0.4 10^3/uL (0.8-4.8); Lymphocytes % 5.2 %; Mean Corpuscular HGB Conc 31.3 g/dL (30.0-36.0); Mean Corpuscular Hemoglobin 31.4 pg (28.0-34.0); Mean Corpuscular Volume 100.6 fl (81-99); Mean Platelet Volume 9.9 fL (7.4-10.4); Monocytes # 0.4 10^3/uL (0.2-0.9); Monocytes % 5.9 %; Neutrophils # 5.96 10^3/uL (1.8-7.7); Neutrophils % 88.4 %; Nucleated Red Blood Cells % 0 %; Platelet Count 210 10^3/cmm (130-400); Red Blood Count 3.34 10^6/uL (4.1-5.3); Red Cell Distribution Width 13.4 % (12.1-15.1); White Blood Count 6.8 10^3/uL (4.0-10.0)
[2023-01-26] MEDS: methylPREDNISolone sod succ 40 MG in water for injection-sterile 1 ML 12 MG IVP ×3 (05:28→21:20)
[2023-01-26 05:44] LABS: Alanine Aminotransferase 10 U/L (0-33); Albumin Level 3.2 g/dL (3.5-5.2); Alkaline Phosphatase 41 U/L (35-105); Anion Gap 10.2 (5-19); Aspartate Amino Transferase 14 U/L (0-32); Blood Urea Nitrogen 10 mg/dL (8-23); Calcium 8.7 mg/dL (8.5-10.5); Carbon Dioxide 40 mmol/L (22-29); Chloride 87 mmol/L (98-107); Globulin 2.1 g/dL (1.3-4.6); Glomerular Filtration Rate 220.6 mL/min (90-130); Glucose 147 mg/dL (65-115); Magnesium 1.9 mg/dL (1.7-2.3); Osmolality Calculated 278 mOsm/kg (285-295); Phosphorus 3.7 mg/dL (2.5-4.5); Potassium 4.2 mmol/L (3.5-5.1); Sodium 133 mmol/L (136-145); Total Bilirubin 0.3 mg/dL (0.15-1.2); Total Protein 5.3 g/dL (6.6-8.7)
[2023-01-26] MEDS: LORazepam 0.5 mg Tablet PO ×2 (05:44→18:09)
[2023-01-26] MEDS: acetaminophen 325 mg Tablet 650 MG PO (07:11)
[2023-01-26] MEDS: losartan 50 mg Tablet PO (08:47)
[2023-01-26] MEDS: montelukast sodium 10 mg Tablet PO (08:47)
[2023-01-26] MEDS: aspirin 81 mg EC Tablet PO (08:47)
[2023-01-26] MEDS: famotidine 20 mg Tablet PO ×2 (08:48→17:34)
[2023-01-26] MEDS: levothyroxine 100 mcg Tablet PO (08:48)
[2023-01-26] MEDS: ipratropium-albuterol 3 mL Neb INHALATION ×3 (08:55→21:21)
[2023-01-26] MEDS: budesonide 0.5 mg/2 mL Neb INHALATION ×2 (08:55→21:21)
[2023-01-26] MEDS: promethazine 25 mg/mL SDV 1 mL 12.5 MG IM ×2 (10:29→18:08)
[2023-01-26] MEDS: cefTRIAXone 1,000 MG in sodium chloride 0.9% (plus) 50 ML 100 MG IV (13:10)
--- NOTE | 2023-01-26 14:03 | PM.PN ---
Subjective Subjective: Patient was seen this morning she reports persistent shortness of breath, does report generalized weakness, no nausea, no vomiting, no chest pain Vitals/I&O/Wt Last Vital Signs Temp 98.3 F 01/26/23 12:00 Pulse 88 01/26/23 12:00 Resp 16 01/26/23 12:00 BP 135/79 01/26/23 12:00 Pulse Ox 96 01/26/23 11:43 O2 Del Method Nasal Cannula 01/26/23 11:27 O2 Flow Rate 3 01/26/23 11:27 FiO2 32 01/25/23 06:30 01/25/23 01/26/23 01/26/23 22:59 06:59 14:59 Intake Total 731 / 1142 1143 361 / 361 Balance 731 / 1142 114 361 / 361 Physical Exam Const: COMMON NORMALS: no acute distress and patient oriented x3 Resp: COMMON NORMALS: normal respiratory effort, No retractions and No use of accessory muscles OTHER: Has scattered wheezing Cardio: COMMON NORMALS: regular rate, regular rhythm, S1 normal heart sound present and S2 normal heart sound present RATE: regular rate RHYTHM: regular rhythm HEART SOUNDS: S1 normal heart sound present and S2 normal heart sound present GI: COMMON NORMALS: Normal to inspection, nondistended, normoactive bowel sounds present and non-tender Extremity: COMMON NORMALS: no pedal edema Neuro: COMMON NORMALS: patient oriented x3 Psych: COMMON NORMALS: mental status grossly normal Data 01/26/23 04:59 01/26/23 04:59 Micro: Microbiology 01/24/23 20:40 Gram Stain - Final Sputum - Expectorated Sputum Sputum Culture - Preliminary 01/24/23 16:28 Blood Culture - Preliminary Blood NEGATIVE TO DATE 01/24/23 16:22 Blood Culture - Preliminary Blood NEGATIVE TO DATE A&P Assessment and plan (1) Acute exacerbation of chronic obstructive pulmonary disease: (2) Acute respiratory failure with hypoxia and hypercapnia: (3) Asthma-COPD overlap syndrome: (4) Dyslipidemia: (5) Smoker: (6) Hypertension: (7) Hypothyroid: Qualifiers: Hypothyroidism type: acquired Qualified Code(s): E03.9 - Hypothyroidism, unspecified (8) Muscle wasting: (9) Severe protein-calorie malnutrition: (10) Physical deconditioning: (11) NSTEMI (non-ST elevated myocardial infarction): (12) Chest pain: (13) Anorexia nervosa with dangerously low body weight: Plan Acute hypoxic hypercarbic respiratory failure -Secondary to COPD -ct of the chest shows severe emphysema Plan -Admit to general medical floors -Monitor respiratory status closely -We will place on BiPAP, as needed during the day schedule during the night -Solu-Medrol 40 mg IV every 8 hours. -Patient would clinically benefit from home BiPAP, she has compliant here in the hospital, she tells me clinically helps her breathing, will see if she can qualify ? Continue Rocephin, continue azithromycin. ? Continue DuoNeb. ? Continue budesonide. ? Follow blood cultures, sputum cultures, p.o. ? Venous ultrasound negative for DVT Chest pain/NSTEMI -Likely type II NSTEMI, from supply demand ischemia from respiratory failure as above however cannot rule out underlying cardiac etiology given history of smoking and age -Serial EKGs, serial troponins, telemetry monitoring -Continue aspirin, statin, beta-manny -Cardiac echo CONCLUSIONS ?Normal left ventricular size, systolic function and wall ?thickness, with no regional wall motion abnormalities. Left ?ventricular ejection fraction is estimated at 65 %. Grade I/IV ?diastolic dysfunction (abnormal relaxation filling pattern), ?normal to mildly elevated filling pressures. ?Structurally normal mitral valve. Trace mitral valve ?regurgitation. ?There are no prior echocardiogram studies to compare. Severe protein calorie malnutrition, severe muscle wasting, severe physical deconditioning -Consult dietary -Consult speech pathology -PT OT anorexia, with dangeorusly, low body weight, consulted dietary COPD, current smoker, smoking cessation counseling Goals of care discussion, patient would like to be a full code Attestations Medical Necessity Statement*: Patient requires hospitalization for COPD exacerbation Diagnoses Acute exacerbation of chronic obstructive pulmonary disease J44.1 Acute respiratory failure with hypoxia and hypercapnia J96.01; J96.02 Asthma-COPD overlap syndrome J44.9 Dyslipidemia E78.5 Smoker F17.200 Hypertension I10 Hypothyroid E03.9 Hypothyroidism type: acquired Muscle wasting M62.50 Severe protein-calorie malnutrition E43 Physical deconditioning R53.81 NSTEMI (non-ST elevated myocardial infarction) I21.4 Chest pain R07.9 Anorexia nervosa with dangerously low body weight F50.00
[2023-01-26] MEDS: azithromycin 500 MG in sodium chloride 0.9% 250 ML 250 MG IV (17:32)
[2023-01-26] MEDS: enoxaparin 40 mg/0.4 mL Syringe SUBCUT (17:33)
[2023-01-26] MEDS: metoprolol succinate ER (24 HR) 25 mg Tablet PO (17:34)
[2023-01-26] MEDS: atorvastatin 40 mg Tablet PO ×2 (17:35→20:42)
[2023-01-26] MEDS: morphine 4 mg/mL SDV 1 mL 1 MG IVP (21:20)
[2023-01-27] VITALS (15 sets, daily range): BP systolic 114–147; BP diastolic 71–88; PULSE 70–94; RESP 15–21; TEMP 36.6–37.3; O2SAT 94–100
[2023-01-27] MEDS: LORazepam 0.5 mg Tablet PO ×2 (04:34→18:03)
[2023-01-27] MEDS: acetaminophen 325 mg Tablet 650 MG PO ×2 (04:45→18:04)
[2023-01-27] MEDS: methylPREDNISolone sod succ 40 MG in water for injection-sterile 1 ML 12 MG IVP (05:03)
[2023-01-27 05:47] LABS: Hematocrit 40.3 % (37.0-47.0); Hemoglobin 12.4 g/dL (11.5-15.3); Lymphocytes # 0.4 10^3/uL (0.8-4.8); Lymphocytes % 5.3 %; Mean Corpuscular HGB Conc 30.8 g/dL (30.0-36.0); Mean Corpuscular Hemoglobin 30.9 pg (28.0-34.0); Mean Corpuscular Volume 100.5 fl (81-99); Mean Platelet Volume 9.7 fL (7.4-10.4); Monocytes # 0.5 10^3/uL (0.2-0.9); Monocytes % 6.5 %; Neutrophils # 6.76 10^3/uL (1.8-7.7); Neutrophils % 87.9 %; Nucleated Red Blood Cells % 0 %; Platelet Count 228 10^3/cmm (130-400); Red Blood Count 4.01 10^6/uL (4.1-5.3); Red Cell Distribution Width 13.2 % (12.1-15.1); White Blood Count 7.7 10^3/uL (4.0-10.0)
[2023-01-27 06:20] LABS: Alanine Aminotransferase 15 U/L (0-33); Albumin Level 4.1 g/dL (3.5-5.2); Alkaline Phosphatase 52 U/L (35-105); Blood Urea Nitrogen 12 mg/dL (8-23); Calcium 9.7 mg/dL (8.5-10.5); Carbon Dioxide 36 mmol/L (22-29); Chloride 86 mmol/L (98-107); Globulin 2.4 g/dL (1.3-4.6); Glomerular Filtration Rate 158.3 mL/min (90-130); Glucose 132 mg/dL (65-115); Magnesium 2.2 mg/dL (1.7-2.3); Osmolality Calculated 280 mOsm/kg (285-295); Phosphorus 2.9 mg/dL (2.5-4.5); Sodium 134 mmol/L (136-145); Total Bilirubin 0.3 mg/dL (0.15-1.2); Total Protein 6.5 g/dL (6.6-8.7)
[2023-01-27 06:21] LABS: Anion Gap 16.3 (5-19); Aspartate Amino Transferase 20 U/L (0-32); Potassium 4.3 mmol/L (3.5-5.1)
[2023-01-27] MEDS: promethazine 25 mg/mL SDV 1 mL 12.5 MG IM (08:24)
[2023-01-27] MEDS: metoclopramide 5 mg/mL SDV 2 mL IVP (11:02)
[2023-01-27] MEDS: famotidine 20 mg Tablet PO ×3 (11:10→18:04)
[2023-01-27] MEDS: aspirin 81 mg EC Tablet PO ×2 (11:10→11:12)
[2023-01-27] MEDS: levothyroxine 100 mcg Tablet PO (11:11)
[2023-01-27] MEDS: montelukast sodium 10 mg Tablet PO (11:12)
[2023-01-27] MEDS: losartan 50 mg Tablet PO (11:15)
[2023-01-27] MEDS: dicyclomine 10 mg Capsule PO ×2 (15:13→20:44)
--- NOTE | 2023-01-27 17:02 | PM.PN ---
Subjective Subjective: Patient was seen this morning, she continues to feel short of breath, has a poor appetite, feeling nauseous this morning, her BMI 13.6, denies any dysuria, does have a chronic cough, she performed overnight pulse ox, unfortunately she does not qualify for home BiPAP machine, nonetheless we will have her follow-up with pulmonary as outpatient, she continues to feel weak, fatigue, malaise Vitals/I&O/Wt Last Vital Signs Temp 98.6 F 01/27/23 16:00 Pulse 94 01/27/23 16:00 Resp 18 01/27/23 16:00 BP 147/88 01/27/23 16:00 Pulse Ox 98 01/27/23 12:00 O2 Del Method Nasal Cannula 01/27/23 15:15 O2 Flow Rate 3 01/27/23 15:15 FiO2 32 01/27/23 00:23 01/27/23 01/27/23 01/27/23 06:59 14:59 22:59 Intake Total 400 / 1902 721 / 721 Balance 400 / 1602 721 / 721 Physical Exam Const: COMMON NORMALS: no acute distress and patient oriented x3 Resp: COMMON NORMALS: normal respiratory effort, No retractions and No use of accessory muscles OTHER: Scattered wheezing Cardio: COMMON NORMALS: regular rate, regular rhythm, S1 normal heart sound present and S2 normal heart sound present RATE: regular rate RHYTHM: regular rhythm HEART SOUNDS: S1 normal heart sound present and S2 normal heart sound present GI: COMMON NORMALS: Normal to inspection, nondistended, normoactive bowel sounds present and non-tender Extremity: COMMON NORMALS: no pedal edema Neuro: COMMON NORMALS: patient oriented x3 Psych: COMMON NORMALS: mental status grossly normal Data 01/27/23 05:36 01/27/23 05:36 Micro: Microbiology 01/24/23 20:40 Gram Stain - Final Sputum - Expectorated Sputum Sputum Culture - Final A&P Assessment and plan (1) Acute exacerbation of chronic obstructive pulmonary disease: (2) Acute respiratory failure with hypoxia and hypercapnia: (3) Asthma-COPD overlap syndrome: (4) Dyslipidemia: (5) Smoker: (6) Hypertension: (7) Hypothyroid: Qualifiers: Hypothyroidism type: acquired Qualified Code(s): E03.9 - Hypothyroidism, unspecified (8) Muscle wasting: (9) Severe protein-calorie malnutrition: (10) Physical deconditioning: (11) NSTEMI (non-ST elevated myocardial infarction): (12) Chest pain: (13) Anorexia nervosa with dangerously low body weight: Plan Acute hypoxic hypercarbic respiratory failure -Secondary to COPD -ct of the chest shows severe emphysema Plan -Admit to general medical floors -Monitor respiratory status closely -We will place on BiPAP, as needed during the day schedule during the night -Solu-Medrol 40 mg IV every 8 hours. -Patient would clinically benefit from home BiPAP, she has compliant here in the hospital, she tells me clinically helps her breathing, will see if she can qualify ? Continue Rocephin, continue azithromycin. ? Continue DuoNeb. ? Continue budesonide. ? Follow blood cultures, sputum cultures, p.o. ? Venous ultrasound negative for DVT Chest pain/NSTEMI -Likely type II NSTEMI, from supply demand ischemia from respiratory failure as above however cannot rule out underlying cardiac etiology given history of smoking and age -Serial EKGs, serial troponins, telemetry monitoring -Continue aspirin, statin, beta-manny -Cardiac echo CONCLUSIONS ?Normal left ventricular size, systolic function and wall ?thickness, with no regional wall motion abnormalities. Left ?ventricular ejection fraction is estimated at 65 %. Grade I/IV ?diastolic dysfunction (abnormal relaxation filling pattern), ?normal to mildly elevated filling pressures. ?Structurally normal mitral valve. Trace mitral valve ?regurgitation. ?There are no prior echocardiogram studies to compare. Severe protein calorie malnutrition, severe muscle wasting, severe physical deconditioning -Consult dietary -Consult speech pathology -PT OT anorexia, with dangeorusly, low body weight, consulted dietary COPD, current smoker, smoking cessation counseling Goals of care discussion, patient would like to be a full code Plan for today up out of bed, physical therapy, nausea control, continue steroids, continue IV antibiotics, plan on discharge in the next 24 to 48 hours Attestations Medical Necessity Statement*: Patient requires hospitalization for acute respiratory failure secondary COPD, severe emphysema, anorexia, severe protein calorie malnutrition, physical deconditioning Diagnoses Acute exacerbation of chronic obstructive pulmonary disease J44.1 Acute respiratory failure with hypoxia and hypercapnia J96.01; J96.02 Asthma-COPD overlap syndrome J44.9 Dyslipidemia E78.5 Smoker F17.200 Hypertension I10 Hypothyroid E03.9 Hypothyroidism type: acquired Muscle wasting M62.50 Severe protein-calorie malnutrition E43 Physical deconditioning R53.81 NSTEMI (non-ST elevated myocardial infarction) I21.4 Chest pain R07.9 Anorexia nervosa with dangerously low body weight F50.00
[2023-01-27] MEDS: enoxaparin 40 mg/0.4 mL Syringe SUBCUT (18:04)
[2023-01-27] MEDS: metoprolol succinate ER (24 HR) 25 mg Tablet PO (18:04)
[2023-01-27] MEDS: doxycycline 100 mg Tablet PO (18:04)
[2023-01-27] MEDS: budesonide 0.5 mg/2 mL Neb INHALATION (19:12)
[2023-01-27] MEDS: ipratropium-albuterol 3 mL Neb INHALATION ×2 (19:12→23:54)
[2023-01-27] MEDS: atorvastatin 40 mg Tablet PO (20:44)
[2023-01-27] MEDS: morphine 4 mg/mL SDV 1 mL 1 MG IVP (22:27)
[2023-01-28] VITALS (17 sets, daily range): BP systolic 98–128; BP diastolic 53–84; PULSE 73–101; RESP 14–18; TEMP 36.8–37.1; O2SAT 94–99
[2023-01-28] MEDS: LORazepam 0.5 mg Tablet PO ×2 (06:10→20:33)
[2023-01-28] MEDS: acetaminophen 325 mg Tablet 650 MG PO ×2 (06:12→16:19)
[2023-01-28] MEDS: dicyclomine 10 mg Capsule PO ×3 (07:42→17:52)
[2023-01-28] MEDS: ipratropium-albuterol 3 mL Neb INHALATION ×4 (08:09→20:35)
[2023-01-28] MEDS: budesonide 0.5 mg/2 mL Neb INHALATION ×2 (08:09→20:36)
[2023-01-28] MEDS: metoclopramide 5 mg/mL SDV 2 mL IVP (08:35)
[2023-01-28] MEDS: levothyroxine 100 mcg Tablet PO (08:38)
[2023-01-28] MEDS: predniSONE 20 mg Tablet 40 MG PO (08:38)
[2023-01-28] MEDS: losartan 50 mg Tablet PO (08:39)
[2023-01-28] MEDS: doxycycline 100 mg Tablet PO ×2 (08:39→17:52)
[2023-01-28] MEDS: montelukast sodium 10 mg Tablet PO (08:39)
--- NOTE | 2023-01-28 14:26 | PM.PN ---
Subjective Subjective: Patient was seen this morning she continued to complain of shortness of breath, she is worried about going home this short of breath, does have a nonproductive cough Vitals/I&O/Wt Last Vital Signs Temp 98.2 F 01/28/23 12:00 Pulse 94 01/28/23 12:00 Resp 18 01/28/23 12:00 BP 113/72 01/28/23 12:00 Pulse Ox 98 01/28/23 11:51 O2 Del Method Nasal Cannula 01/28/23 11:51 O2 Flow Rate 3 01/28/23 11:21 FiO2 32 01/28/23 03:12 01/27/23 01/28/23 01/28/23 22:59 06:59 14:59 Intake Total 480 / 1201 360 / 1561 960 / 960 Balance 480 / 1201 360 / 1561 960 / 960 Physical Exam Const: COMMON NORMALS: no acute distress and patient oriented x3 Resp: COMMON NORMALS: normal respiratory effort, No retractions, No use of accessory muscles and clear to auscultation bilaterally AUSCULTATION: clear to auscultation bilaterally Cardio: COMMON NORMALS: regular rate, regular rhythm, S1 normal heart sound present and S2 normal heart sound present RATE: regular rate RHYTHM: regular rhythm HEART SOUNDS: S1 normal heart sound present and S2 normal heart sound present GI: COMMON NORMALS: Normal to inspection, nondistended, normoactive bowel sounds present and non-tender Extremity: COMMON NORMALS: no pedal edema Neuro: COMMON NORMALS: patient oriented x3 Psych: COMMON NORMALS: mental status grossly normal Data 01/27/23 05:36 01/27/23 05:36 Micro: Microbiology 01/24/23 20:40 Gram Stain - Final Sputum - Expectorated Sputum Sputum Culture - Final A&P Assessment and plan (1) Acute exacerbation of chronic obstructive pulmonary disease: (2) Acute respiratory failure with hypoxia and hypercapnia: (3) Asthma-COPD overlap syndrome: (4) Dyslipidemia: (5) Smoker: (6) Hypertension: (7) Hypothyroid: Qualifiers: Hypothyroidism type: acquired Qualified Code(s): E03.9 - Hypothyroidism, unspecified (8) Muscle wasting: (9) Severe protein-calorie malnutrition: (10) Physical deconditioning: (11) NSTEMI (non-ST elevated myocardial infarction): (12) Chest pain: (13) Anorexia nervosa with dangerously low body weight: Plan Acute hypoxic hypercarbic respiratory failure -Secondary to COPD -ct of the chest shows severe emphysema Plan -Admit to general medical floors -Monitor respiratory status closely -We will place on BiPAP, as needed during the day schedule during the night -De-escalate to prednisone 40 mg once daily -Patient would clinically benefit from home BiPAP, she has compliant here in the hospital, she tells me clinically helps her breathing, will see if she can qualify ? De-escalate to doxycycline ? Continue DuoNeb. ? Continue budesonide. ? Follow blood cultures, sputum cultures, p.o. ? Venous ultrasound negative for DVT Chest pain/NSTEMI -Likely type II NSTEMI, from supply demand ischemia from respiratory failure as above however cannot rule out underlying cardiac etiology given history of smoking and age -Serial EKGs, serial troponins, telemetry monitoring -Continue aspirin, statin, beta-manny -Cardiac echo CONCLUSIONS ?Normal left ventricular size, systolic function and wall ?thickness, with no regional wall motion abnormalities. Left ?ventricular ejection fraction is estimated at 65 %. Grade I/IV ?diastolic dysfunction (abnormal relaxation filling pattern), ?normal to mildly elevated filling pressures. ?Structurally normal mitral valve. Trace mitral valve ?regurgitation. ?There are no prior echocardiogram studies to compare. Severe protein calorie malnutrition, severe muscle wasting, severe physical deconditioning -Consult dietary -Consult speech pathology -PT OT anorexia, with dangeorusly, low body weight, consulted dietary COPD, current smoker, smoking cessation counseling Goals of care discussion, patient would like to be a full code Plan for today up out of bed, physical therapy, nausea control, de-escalate steroids, antibiotics, plan on discharge tomorrow Attestations Medical Necessity Statement*: Patient requires hospitalization for COPD exacerbation Diagnoses Acute exacerbation of chronic obstructive pulmonary disease J44.1 Acute respiratory failure with hypoxia and hypercapnia J96.01; J96.02 Asthma-COPD overlap syndrome J44.9 Dyslipidemia E78.5 Smoker F17.200 Hypertension I10 Hypothyroid E03.9 Hypothyroidism type: acquired Muscle wasting M62.50 Severe protein-calorie malnutrition E43 Physical deconditioning R53.81 NSTEMI (non-ST elevated myocardial infarction) I21.4 Chest pain R07.9 Anorexia nervosa with dangerously low body weight F50.00
[2023-01-28] MEDS: enoxaparin 40 mg/0.4 mL Syringe SUBCUT (16:21)
[2023-01-28] MEDS: metoprolol succinate ER (24 HR) 25 mg Tablet PO (17:52)
[2023-01-28] MEDS: famotidine 20 mg Tablet PO (17:52)
[2023-01-28] MEDS: atorvastatin 40 mg Tablet PO (20:33)
[2023-01-29] VITALS (9 sets, daily range): BP systolic 124–136; BP diastolic 78–79; PULSE 71–87; RESP 16; TEMP 36.4–36.9; O2SAT 95–100
[2023-01-29] MEDS: LORazepam 0.5 mg Tablet PO (06:05)
[2023-01-29] MEDS: acetaminophen 325 mg Tablet 650 MG PO (06:05)
[2023-01-29] MEDS: ipratropium-albuterol 3 mL Neb INHALATION (07:24)
[2023-01-29] MEDS: budesonide 0.5 mg/2 mL Neb INHALATION (07:24)
[2023-01-29] MEDS: doxycycline 100 mg Tablet PO (08:35)
[2023-01-29] MEDS: losartan 50 mg Tablet PO (08:35)
[2023-01-29] MEDS: predniSONE 20 mg Tablet 40 MG PO (08:35)
[2023-01-29] MEDS: famotidine 20 mg Tablet PO (08:35)
[2023-01-29] MEDS: montelukast sodium 10 mg Tablet PO (08:35)
[2023-01-29] MEDS: aspirin 81 mg EC Tablet PO (08:35)
[2023-01-29] MEDS: levothyroxine 100 mcg Tablet PO (08:35)
[2023-01-29] MEDS: dicyclomine 10 mg Capsule PO (08:35)
--- NOTE | 2023-01-29 10:40 | PM.DCS ---
Discharge Providers Date of Admission: 01/24/23 16:02 Date of Discharge: January 29, 2023 Attending Provider at Admission: Justin Perkins MD Attending Provider at Discharge: Justin Perkins MD Primary Care Provider: Renetta aGrcia NP Diagnoses at Discharge Discharge Diagnosis (1) Acute exacerbation of chronic obstructive pulmonary disease: Status: Acute (2) Acute respiratory failure with hypoxia and hypercapnia: Status: Acute (3) Asthma-COPD overlap syndrome: Status: Acute (4) Dyslipidemia: Status: Acute (5) Smoker: Status: Acute (6) Hypertension: Status: Acute (7) Hypothyroid: Status: Acute Qualifiers: Hypothyroidism type: acquired Qualified Code(s): E03.9 - Hypothyroidism, unspecified (8) Muscle wasting: Status: Acute (9) Severe protein-calorie malnutrition: Status: Acute (10) Physical deconditioning: Status: Acute (11) NSTEMI (non-ST elevated myocardial infarction): Status: Acute (12) Chest pain: Status: Acute (13) Anorexia nervosa with dangerously low body weight: Status: Acute Reason for Visit Reason for Visit: SOB Hospital Course Hospital Course Kristine Bell is a 67 year old female with a past medical history of COPD, current smoker, who presents to [facility] due to increasingly short of breath, productive cough, yellow-green sputum, patient tells me that recently she has been feeling more short of breath, short of breath with exertion, no fevers, chills but is having a productive cough with yellow-green sputum she also reports left chest discomfort with her shortness of breath, denies a history of CAD no history of heart attacks, no history of strokes, no history of diabetes, denied lower extremity edema she has been losing weight, due to poor appetite, for which she is on meds [place], denies any bloody or black stools does have a family history of lung cancer in her mother, does report smoking for more than 30 years, Patient was admitted to [facility] for acute hypoxic hypercarbic respiratory failure secondary to COPD, CT of the chest showing severe emphysema, received steroid therapy, broad-spectrum antibiotic therapy, overall clinically monitored, patient overall clinically improved, discharged on a prednisone taper, doxycycline, I had an extensive discussion with patient about smoking cessation, morbidity and mortality associate with continued smoking, to absolutely not smoke around oxygen therapy, morbidity and mortality associated, I spent over 10 minutes discussing smoking cessation counseling. For her chest pain complaints, elevated troponins, likely type II NSTEMI, discharged on aspirin, statin, continue home beta-manny, if she has any recurrent chest pain to go to the emergency room. Her echocardiogram showed an EF of 65%, no regional wall motion abnormalities. She does have severe protein calorie malnutrition, severe muscle wasting, severe physical deconditioning, recommended protein shakes 3 times daily, to stop smoking, follow-up with primary care provider as outpatient. Physical Exam Const: COMMON NORMALS: no acute distress and patient oriented x3 Resp: COMMON NORMALS: normal respiratory effort, No retractions, No use of accessory muscles and clear to auscultation bilaterally AUSCULTATION: clear to auscultation bilaterally Cardio: COMMON NORMALS: regular rate, regular rhythm, S1 normal heart sound present and S2 normal heart sound present RATE: regular rate RHYTHM: regular rhythm HEART SOUNDS: S1 normal heart sound present and S2 normal heart sound present GI: COMMON NORMALS: Normal to inspection, nondistended, normoactive bowel sounds present and non-tender Extremity: COMMON NORMALS: no clubbing, cyanosis or edema and no pedal edema Neuro: COMMON NORMALS: patient oriented x3 Psych: COMMON NORMALS: mental status grossly normal Discharge Data Studies Completed and Pending Completed Studies During Hospitalization Category Date Time Status CT chest wo con [id number] Stat Cat Scan 01/24/23 13:40 Completed XR chest 1V portable [id number] Stat Exams 01/24/23 10:00 [place] [id number] Stat Ultrasound 01/25/23 13:40 Completed CV. echo complete* [id number] Stat Ultrasound 01/25/23 13:40 Completed Pending at discharge Category Date Time Status Blood Culture Routine Lab 01/24/23 16:28 Results Occult Blood Stool [Immunochemical Fecal OCB] Stat Lab 01/24/23 12:11 Uncollected Radiology Impressions Chest X-Ray 01/24/23 10:00 IMPRESSION: COPD. Chest CT 01/24/23 13:40 IMPRESSION: 1. Severe emphysema. No acute findings. 2. Ectasia of the ascending thoracic aorta up to 4.3 cm. COMMENTS: In the absence of a history or active diagnosis of lung cancer, it is recommended that this patient with emphysema be evaluated for enrollment in a low dose CT lung cancer screening program. Venous Duplex 01/25/23 13:40 IMPRESSION: No evidence of deep vein thrombosis. Laboratory Results WBC 7.7 10^3/uL (4.0-10.0) 01/27/23 05:36 RBC 4.01 10^6/uL (4.1-5.3) L 01/27/23 05:36 Hgb 12.4 g/dL (11.5-15.3) 01/27/23 05:36 Hct 40.3 % (37.0-47.0) 01/27/23 05:36 MCV 100.5 fl (81-99) H 01/27/23 05:36 MCH 30.9 pg (28.0-34.0) 01/27/23 05:36 MCHC 30.8 g/dL (30.0-36.0) 01/27/23 05:36 RDW 13.2 % (12.1-15.1) 01/27/23 05:36 Plt Count 228 10^3/cmm (130-400) 01/27/23 05:36 MPV 9.7 fL (7.4-10.4) 01/27/23 05:36 Neut % (Auto) 87.9 % 01/27/23 05:36 Lymph % (Auto) 5.3 % 01/27/23 05:36 [place] % (Auto) 6.5 % 01/27/23 05:36 Eos % (Auto) 0.0 % 01/27/23 05:36 Baso % (Auto) 0.0 % 01/27/23 05:36 Neut # (Auto) 6.76 10^3/uL (1.8-7.7) 01/27/23 05:36 Lymph # (Auto) 0.4 10^3/uL (0.8-4.8) L 01/27/23 05:36 [place] # (Auto) 0.5 10^3/uL (0.2-0.9) 01/27/23 05:36 Eos # (Auto) 0.0 10^3/uL (0.0-0.8) 01/27/23 05:36 Baso # (Auto) 0.0 10^3/uL (0.0-0.1) 01/27/23 05:36 Nucleated RBC % (auto) 0 % 01/27/23 05:36 Nucleated RBCs # 0.0 /100WBC 01/27/23 05:36 D-Dimer 0.40 ug/mIFEU (0-0.59) 01/24/23 09:55 Specimen Type Arterial 01/24/23 13:00 Sample Site Brachial, left 01/24/23 13:00 ABG pH 7.44 (7.35-7.45) 01/24/23 13:00 ABG pCO2 68.3 mmHg (35-45) H* 01/24/23 13:00 ABG pO2 73.0 mmHg (80.0-100.0) L 01/24/23 13:00 ABG HCO3 46.7 mmol/L (22-26) H 01/24/23 13:00 ABG O2 Saturation 97.2 01/24/23 13:00 ABG Base Excess 19.3 mmol/L (-2.0-2.0) H 01/24/23 13:00 [place] Test N/a 01/24/23 13:00 A-a O2 Gradient 9.4 mmHg (5-10) 01/24/23 13:00 Hematocrit 35.4 % (37-47) L 01/24/23 13:00 Hgb O2 Saturation 93.3 % (95-100) L 01/24/23 13:00 Carboxyhemoglobin 3.6 %THgb (0.4-20.1) 01/24/23 13:00 Methemoglobin 0.5 % (0.4-1.5) 01/24/23 13:00 Total Hemoglobin 11.5 g/dL (12-16) L 01/24/23 13:00 Sodium 133.0 mmol/L (131-143) 01/24/23 13:00 Potassium 4.0 mmol/L (3.5-5.0) 01/24/23 13:00 Glucose 118.0 mg/dL (70-115) H 01/24/23 13:00 Ionized Calcium 1.2 mmol/L (1.1-1.4) 01/24/23 13:00 O2 Delivery Device Nc 01/24/23 13:00 O2 Liters/Min 3.0 % 01/24/23 13:00 FiO2 32.0 % 01/24/23 13:00 Print Decorator ID glc 01/24/23 13:00 Sodium 134 mmol/L (136-145) L 01/27/23 05:36 Potassium 4.3 mmol/L (3.5-5.1) 01/27/23 05:36 Chloride 86 mmol/L (98-107) L 01/27/23 05:36 Carbon Dioxide 36 mmol/L (22-29) H 01/27/23 05:36 Anion Gap 16.3 (5-19) 01/27/23 05:36 BUN 12 mg/dL (8-23) 01/27/23 05:36 Creatinine 0.4 mg/dL (0.5-0.9) L 01/27/23 05:36 GFR Calculation 158.3 mL/min (90-130) H 01/27/23 05:36 Glucose 132 mg/dL (65-115) H 01/27/23 05:36 Calculated Osmolality 280 mOsm/kg (285-295) L 01/27/23 05:36 Calcium 9.7 mg/dL (8.5-10.5) 01/27/23 05:36 Phosphorus 2.9 mg/dL (2.5-4.5) 01/27/23 05:36 Magnesium 2.2 mg/dL (1.7-2.3) 01/27/23 05:36 Total Bilirubin 0.3 mg/dL (0.15-1.2) 01/27/23 05:36 AST 20 U/L (0-32) 01/27/23 05:36 ALT 15 U/L (0-33) 01/27/23 05:36 Alkaline Phosphatase 52 U/L (35-105) 01/27/23 05:36 Troponin T Baseline 32 ng/L (0-10) H 01/24/23 09:58 Troponin T 120 Minute 27.78 ng/L (0-10) H 01/24/23 12:06 Delta Troponin T -4.22 ABS# (0-10) L 01/24/23 12:06 Troponin T Hi Sens 6Hr 21.49 ng/L (0-10) H 01/24/23 16:22 Troponin T Hi Sens 6Hr Delta -10.51 ng/L (0-12) L 01/24/23 16:22 NT-Pro-B Natriuret Pep 382 pg/mL (0-125) H 01/24/23 09:58 Total Protein 6.5 g/dL (6.6-8.7) L 01/27/23 05:36 Albumin 4.1 g/dL (3.5-5.2) 01/27/23 05:36 Globulin 2.4 g/dL (1.3-4.6) 01/27/23 05:36 Procalcitonin 0.04 ng/mL (0-0.5) 01/24/23 12:06 TSH 0.77 uIU/mL (0.27-4.20) 01/24/23 12:06 Urine Color Yellow (Yellow) 01/24/23 20:40 Urine Appearance Clear (CLEAR) 01/24/23 20:40 Urine pH 8 (5-7) H 01/24/23 20:40 Ur Specific [place] 1.005 (1.005-1.030) 01/24/23 20:40 Urine Protein Neg (Negative) 01/24/23 20:40 Urine Glucose (UA) 1+ (Normal) H 01/24/23 20:40 Urine Ketones 1+ (Negative) H 01/24/23 20:40 Urine Blood Neg (Negative) 01/24/23 20:40 Urine Nitrate Negative (Negative) 01/24/23 20:40 Urine Bilirubin Neg (Negative) 01/24/23 20:40 Prot Sulfosalicylic Acd Negative (Negative) 01/24/23 20:40 Urine Urobilinogen Norm mg/dL (Negative) 01/24/23 20:40 Ur Leukocyte Esterase Negative (Negative) 01/24/23 20:40 Nasal Influ A H1 2008 PCR Not detected (NOT DETECT) 01/24/23 17:30 Adenovirus (PCR) Not detected (NOT DETECT) 01/24/23 17:30 C. pneumoniae DNA (PCR) Not detected (NOT DETECT) 01/24/23 17:30 Coronavirus 229E (PCR) Not detected (NOT DETECT) 01/24/23 17:30 Human Metapneumovir PCR Not detected (NOT DETECT) 01/24/23 17:30 Influenza A (H1) PCR Not detected (NOT DETECT) 01/24/23 17:30 Influenza A (H3) PCR Not detected (NOT DETECT) 01/24/23 17:30 Influenza Type A Ag negative (Negative) 01/24/23 10:30 Influenza Type A (PCR) Not detected (NOT DETECT) 01/24/23 17:30 Influenza Type B Ag negative (Negative) 01/24/23 10:30 Influenza Type B (PCR) Not detected (NOT DETECT) 01/24/23 17:30 M. pneumoniae (PCR) Not detected (NOT DETECT) 01/24/23 17:30 Parainfluenza 1 (PCR) Not detected (NOT DETECT) 01/24/23 17:30 Parainfluenza 2 (PCR) Not detected (NOT DETECT) 01/24/23 17:30 Parainfluenza 3 (PCR) Not detected (NOT DETECT) 01/24/23 17:30 Parainfluenza 4 (PCR) Not detected (NOT DETECT) 01/24/23 17:30 RSV Type A (PCR) Not detected (NOT DETECT) 01/24/23 17:30 RSV Type B (PCR) Not detected (NOT DETECT) 01/24/23 17:30 Entero/Rhino (PCR) Not detected (NOT DETECT) 01/24/23 17:30 SARS-CoV-2 (PCR) Not detected (NOT DETECT) 01/24/23 17:30 SARS-CoV-2 Ag (Rapid) negative (Negative) 01/24/23 10:30 Vitals Last Vital Signs Temp 97.5 F L 01/29/23 07:46 Pulse 79 01/29/23 07:46 Resp 16 01/29/23 07:46 BP 136/79 01/29/23 08:35 Pulse Ox 95 01/29/23 07:46 O2 Del Method Nasal Cannula 01/29/23 07:46 O2 Flow Rate 3 01/29/23 07:29 FiO2 35 01/29/23 04:00 Discharge Plan Discharge Patient Disposition: Home Condition: Stable Prescriptions: New prednisone 10 mg tablet See Rx Instructions .ROUTE .COMPLEX Qty: 53 0RF Rx Instructions: 4 tabs a day for 5 days, 3 tabs a day for 5 days, 2 tabs for 5 days, 1 tab for 5 days, 0.5 for 5 days atorvastatin 40 mg tablet 40 mg PO DAILY 30 Days Qty: 30 0RF doxycycline monohydrate 100 mg Tablet 100 mg PO BID 7 Days Qty: 14 0RF aspirin 81 mg capsule 81 mg PO DAILY 30 Days Qty: 30 0RF Continued Spiriva Respimat 2.5 mcg/actuation mist 2 inh inhalation QAM Combivent Respimat 20-100 mcg/actuation mist 1 puff inhalation Q6H budesonide-formoterol [Symbicort] 160-4.5 mcg/actuation HFA aerosol inhaler 2 puff inhalation BID Dexilant 60 mg capsule,biphase delayed releas 60 mg PO DAILY diclofenac sodium 1 % gel 2 g topical QID Rx Instructions: apply to single elbow, wrist or hand; for hand includes palm/fingers/back of hand fluticasone propionate [Allergy Relief (fluticasone)] 50 mcg/actuation spray,suspension 1 spray intranasal BID Rx Instructions: administer into each nostril metoprolol succinate [Toprol XL] 25 mg tablet extended release 24 hr 25 mg PO QPM levothyroxine 100 mcg capsule 100 mcg PO DAILY lorazepam 0.5 mg tablet 0.5 mg PO BID rosuvastatin 10 mg tablet 10 mg PO QPM montelukast 10 mg tablet 1 ea PO DAILY albuterol sulfate 90 mcg/actuation HFA aerosol inhaler 2 puff inhalation Q4H PRN (Reason: Shortness Of Breath Or Wheezing) losartan 50 mg tablet 50 mg PO DAILY potassium chloride 8 mEq capsule, extended release 8 meq PO DAILY megestrol 20 mg tablet 20 mg PO QID dicyclomine 10 mg capsule 10 mg PO TID Changed furosemide 20 mg tablet 20 mg PO DAILY PRN (Reason: weight gain more than 3 pounds or lower extremity edema) Qty: 30 0RF Discharge Orders: Discharge Order (Routine); Ordered 01/29/23 Ordered By: Justin Perkins Other Ambulatory Orders: DME: BIPAP (Order) Location: None Selected Ordered By: Justin Perkins Referrals: ShamikarBonifacio MD [Physician] - 1-3 days Renetta Garcia NP [Primary Care Provider] - 01/30/23 11:00 am Discharge Diet: Cardiac Discharge Activity: Resume usual activity Patient Instructions: How to Stop Smoking (DC), Cigarette Smoking and Your Health (GEN), Opioid Safety, Quitting Smoking Activity Restrictions/Additional Instructions: - Please stop smoking -Please take antibiotics and steroids as prescribed -Please see primary care in 1 week -If you have worsening shortness of breath please go to emergency room -Please do not smoke with oxygen therapy, Discharge Attestations Time Spent in Discharge Care*: greater than 30 min Time Spent in Smoking Cessation: more than 10 minutes Quality Metrics Clinical Quality Measures [ No reported AMI, CVA or VTE this stay] Coding Level of Care Code 35653 Total time (in minutes) for Discharge: 45 Diagnoses Acute exacerbation of chronic obstructive pulmonary disease J44.1 Acute respiratory failure with hypoxia and hypercapnia J96.01; J96.02 Asthma-COPD overlap syndrome J44.9 Dyslipidemia E78.5 Smoker F17.200 Hypertension I10 Hypothyroid E03.9 Hypothyroidism type: acquired Muscle wasting M62.50 Severe protein-calorie malnutrition E43 Physical deconditioning R53.81 NSTEMI (non-ST elevated myocardial infarction) I21.4 Chest pain R07.9 Anorexia nervosa with dangerously low body weight F50.00
--- NOTE | 2023-01-29 12:55 | PC.SOCIAL ---
IMM Update pg 2 of IMM updated and reviewed w/ patient. Copy provided and Copy dated, initialed and placed in chart.
== END 2023-01-29 11:46 | disposition home or self-care (01) | DRG 189 ==
LOC: ER 13:47 → MEDSURG 17:17
PROVIDERS: Admitting Provider Family Medicine; Emergency Provider Nurse Practitioner; PCP Nurse Practitioner Family; Visit Provider Family Medicine
DX: J96.01 Acute respiratory failure with hypoxia (principal); I21.A1 Myocardial infarction type 2; E43 Unspecified severe protein-calorie malnutrition; Z68.1 Body mass index [BMI] 19.9 or less, adult; F50.00 Anorexia nervosa, unspecified; J96.02 Acute respiratory failure with hypercapnia; J43.9 Emphysema, unspecified; F17.210 Nicotine dependence, cigarettes, uncomplicated; Z79.51 Long term (current) use of inhaled steroids; I10 Essential (primary) hypertension; E03.9 Hypothyroidism, unspecified; F41.9 Anxiety disorder, unspecified; I25.10 Atherosclerotic heart disease of native coronary artery without angina pectoris; G89.29 Other chronic pain; M54.9 Dorsalgia, unspecified; E78.5 Hyperlipidemia, unspecified; Z80.1 Family history of malignant neoplasm of trachea, bronchus and lung
CPT/HCPCS: 36415; 36600; 71045; 71250; 80051; 80053; 81003; 82330; 82805; 83735; 83880; 84100; 84145; 84443; 84484; 85025; 85378; 87040; 87070; 87205; 87426; 87486; 87581; 87633; 87804; 92526; 92610; 93005; 93306; 93970; 94640; 94660; 94664; 94762; 96372; 96374; 96375; 99291; J0456; J0696; J1650; J2270; J2550; J2765; J2920; J2930; J7040; J7050; J7512; J7626